=== PATIENT | male | born 1945 | race Caucasian/White ===

== ENCOUNTER 2018-07-03 08:04 | Emergency (ER) | payer MEDICARE ==
[2018-07-03 08:11] VITALS: TEMP 97.8
[2018-07-03] MEDS ORDERED: SODIUM CHLORIDE 0.9% 1,000 ML IV STA (08:18)
--- NOTE | 2018-07-03 08:22 | ED ---
Neuro HPI - General Chief Complaint: Neuro Symptoms/Deficit Stated Complaint: Slurred speech Time Seen by Provider: 07/03/18 08:12 Source: patient, RN notes reviewed Mode of arrival: ambulatory Limitations: no limitations - History of Present Illness Is the patient presenting with stroke symptoms?: Yes Initial Comments: This is a 73-year-old male who states he had the onset around 12 noon yesterday of some slurred speech and left facial droop. He had a headache blurry vision nausea vomiting fevers chills sweats loss of function to his upper or lower extremities. He does state that the previous day he had rollerbladed adrianna roximately 6 miles without any incident. He does rollerbladed quite often apparently. No prior history of stroke no other modifying factors at this time. - Related Data Home Medications: Home Medications Medication Instructions Recorded Confirmed No Known Home Medications 07/03/18 07/03/18 Allergies/Adverse Reactions: Allergies Allergy/AdvReac Type Severity Reaction Status Date / Time No Known Allergies Allergy Verified 07/03/18 08:39 Review of Systems ROS Statement: Those systems with pertinent positive or pertinent negative responses have been documented in the HPI. ROS Other: All systems not noted in ROS Statement are negative. General Exam - General Exam Comments Initial Comments: This is a well-developed well-nourished awake alert oriented 3 male Limitations: no limitations General appearance: alert, in no apparent distress Head exam: Present: atraumatic, normocephalic, normal inspection Eye exam: Present: normal appearance, PERRL, EOMI. Absent: scleral icterus, conjunctival injection, periorbital swelling ENT exam: Present: mucous membranes moist, other (Slight left-sided facial asymmetry with flattening of the way nasolabial fold very slight slurring of his speech.) Neck exam: Present: normal inspection, full ROM, other (No stridor JVD or bruits). Absent: tenderness, meningismus, lymphadenopathy Respiratory exam: Present: normal lung sounds bilaterally. Absent: respiratory distress, wheezes, rales, rhonchi, stridor Cardiovascular Exam: Present: regular rate, normal rhythm, normal heart sounds. Absent: systolic murmur, diastolic murmur, rubs, gallop, clicks GI/Abdominal exam: Present: soft, normal bowel sounds. Absent: distended, tenderness, guarding, rebound, rigid Extremities exam: Present: normal inspection, full ROM, normal capillary refill. Absent: tenderness, pedal edema, joint swelling, calf tenderness Back exam: Present: normal inspection Neurological exam: Present: alert, oriented X3, other (Slight facial asymmetry i s noted very slight slurring of his speech.) Psychiatric exam: Present: normal affect, normal mood Skin exam: Present: warm, dry, intact, normal color. Absent: rash Stroke MDM - Lab Data Result diagrams: 07/03/18 08:27 07/03/18 08:27 Lab Results 07/03/18 07/03/18 07/03/18 Range/Units 08:20 08:27 08:27 WBC 5.6 (3.8-10.6) k/uL RBC 4.94 (4.30-5.90) m/uL Hgb 15.1 (13.0-17.5) gm/dL Hct 45.3 (39.0-53.0) % MCV 91.7 (80.0-100.0) fL MCH 30.6 (25.0-35.0) pg MCHC 33.4 (31.0-37.0) g/dL RDW 13.5 (11.5-15.5) % Plt Count 172 (150-450) k/uL Neutrophils % 66 % Lymphocytes % 25 % Monocytes % 5 % Eosinophils % 2 % Basophils % 1 % Neutrophils # 3.7 (1.3-7.7) k/uL Lymphocytes # 1.4 (1.0-4.8) k/uL Monocytes # 0.3 (0-1.0) k/uL Eosinophils # 0.1 (0-0.7) k/uL Basophils # 0.0 (0-0.2) k/uL PT (9.0-12.0) sec INR (<1.2) APTT (22.0-30.0) sec Sodium 141 (137-145) mmol/L Potassium 4.0 (3.5-5.1) mmol/L Chloride 108 H (98-107) mmol/L Carbon Dioxide 28 (22-30) mmol/L Anion Gap 5 mmol/L BUN 17 (9-20) mg/dL Creatinine 0.90 (0.66-1.25) mg/dL Est GFR (CKD-EPI)AfAm >90 (>60 ml/min/1.73 sqM) Est GFR (CKD-EPI)NonAf 83 (>60 ml/min/1.73 sqM) Glucose 105 H (74-99) mg/dL POC Glucose (mg/dL) 105 H (75-99) mg/dL POC Glu Applications Support Specialist ID Angus De Jesus Calcium 9.4 (8.4-10.2) mg/dL Magnesium 1.8 (1.6-2.3) mg/dL Total Bilirubin 0.9 (0.2-1.3) mg/dL AST 22 (17-59) U/L ALT 22 (21-72) U/L Alkaline Phosphatase 64 (38-126) U/L Total Creatine Kinase (55-170) U/L CK-MB (CK-2) (0.0-2.4) ng/mL CK-MB (CK-2) Rel Index Troponin I (0.000-0.034) ng/mL Total Protein 6.9 (6.3-8.2) g/dL Albumin 4.2 (3.5-5.0) g/dL 07/03/18 07/03/18 Range/Units 08:27 08:27 WBC (3.8-10.6) k/uL RBC (4.30-5.90) m/uL Hgb (13.0-17.5) gm/dL Hct (39.0-53.0) % MCV (80.0-100.0) fL MCH (25.0-35.0) pg MCHC (31.0-37.0) g/dL RDW (11.5-15.5) % Plt Count (150-450) k/uL Neutrophils % % Lymphocytes % % Monocytes % % Eosinophils % % Basophils % % Neutrophils # (1.3-7.7) k/uL Lymphocytes # (1.0-4.8) k/uL Monocytes # (0-1.0) k/uL Eosinophils # (0-0.7) k/uL Basophils # (0-0.2) k/uL PT 10.1 (9.0-12.0) sec INR 0.9 (<1.2) APTT 24.7 (22.0-30.0) sec Sodium (137-145) mmol/L Potassium (3.5-5.1) mmol/L Chloride (98-107) mmol/L Carbon Dioxide (22-30) mmol/L Anion Gap mmol/L BUN (9-20) mg/dL Creatinine (0.66-1.25) mg/dL Est GFR (CKD-EPI)AfAm (>60 ml/min/1.73 sqM) Est GFR (CKD-EPI)NonAf (>60 ml/min/1.73 sqM) Glucose (74-99) mg/dL POC Glucose (mg/dL) (75-99) mg/dL POC Glu Applications Support Specialist ID Calcium (8.4-10.2) mg/dL Magnesium (1.6-2.3) mg/dL Total Bilirubin (0.2-1.3) mg/dL AST (17-59) U/L ALT (21-72) U/L Alkaline Phosphatase (38-126) U/L Total Creatine Kinase 42 L (55-170) U/L CK-MB (CK-2) 0.8 (0.0-2.4) ng/mL CK-MB (CK-2) Rel Index 1.9 Troponin I <0.012 (0.000-0.034) ng/mL Total Protein (6.3-8.2) g/dL Albumin (3.5-5.0) g/dL - NIH Stroke Scale 1a. Level of Consciousness: (0) alert 1b. LOC Questions: (0) answers correctly 1c. LOC Commands: (0) performs tasks correctly 2. Best Gaze: (0) normal 3. Visual: (0) no visual loss 4. Facial Palsy: (1) minor paralysis 5a. Motor Arm Left: (0) no drift 5b. Motor Arm Right: (0) no drift 6a. Motor Leg Left: (0) no drift 6b. Motor Leg Right: (0) no drift 7. Limb Ataxia: (0) absent 8. Sensory: (0) normal 9. Best Language: (1) mild/moderate aphasia 10. Dysarthria: (0) normal 11. Extinction/Inattention: (0) no abnormality - EKG Data -: EKG Interpreted by Me (Sinus rhythm a 69. Interval 178 QRS duration 104 QT since QTC 14/447 moder) EKG shows normal: sinus rhythm Past Medical History Past Medical History: No Reported History History of Any Multi-Drug Resistant Organisms: None Reported Past Psychological History: No Psychological Hx Reported Smoking Status: Never smoker Past Alcohol Use History: None Reported Past Drug Use History: None Reported Course Vital Signs 07/03/18 07/03/18 07/03/18 08:08 08:20 08:30 Temperature 97.8 F Pulse Rate 71 72 75 Respiratory 20 18 16 Rate Blood Pressure 146/92 181/91 O2 Sat by Pulse 95 96 Oximetry 07/03/18 07/03/18 08:39 08:45 Temperature Pulse Rate 75 71 Respiratory 16 16 Rate Blood Pressure 180/95 O2 Sat by Pulse 97 96 Oximetry - Reevaluation(s) Reevaluation #1: 07/03/18 09:32 I did reevaluate patient several occasions he demonstrates no further changes in his presenting complaints. He is awake alert oriented 3. Reevaluation #2: 07/03/18 09:32 I did discuss case with Dr. Vallejo the patient is not a candidate for intervention at this time he does require inpatient treatment and workup. He will be placed on aspirin and Lipitor. Patient will be transferred to [facility] I did discuss the case with Dr. Soni patient will be transferred year to ER Reevaluation #3: 07/03/18 09:34 Patient did require cardiac monitoring: Heart rate of 70 bpm no PACs or PVCs. Indicated. Due to strokelike symptoms Critical Care Time Critical Care Time: Yes Critical Care Time: 31 minutes of critical care time which was initial presentation with history physical labs x-rays also reevaluation the patient. Discussion with the patient family regarding findings discussed with the interventional neurologist. Discussed with the ER personnel at [facility]. Discussion with the transferring paramedics. Documentation of the above. Disposition Clinical Impression: Cerebrovascular accident Disposition: OTHER INSTITUTION NOT DEFINED Condition: Stable Referrals: None,Stated [Primary Care Provider] - 1-2 days - Out of Hospital Transfer - Req. Specs Out of Hospital Transfer - Requested Specifics: Other Emergency Center
[2018-07-03 08:38] LABS: Glucose,Whole Blood 105 mg/dL (75-99)
[2018-07-03 08:45] LABS: Basophils % (A) 1 %; Eosinophils # (A) 0.1 k/uL (0-0.7); Eosinophils % (A) 2 %; HCT 45.3 % (39.0-53.0); HGB 15.1 gm/dL (13.0-17.5); Lymphocytes # (A) 1.4 k/uL (1.0-4.8); Lymphocytes % (A) 25 %; MCH 30.6 pg (25.0-35.0); MCHC 33.4 g/dL (31.0-37.0); MCV 91.7 fL (80.0-100.0); Mean Platelet Volume 7.2; Monocytes # (A) 0.3 k/uL (0-1.0); Monocytes % (A) 5 %; Neutrophils # (A) 3.7 k/uL (1.3-7.7); Neutrophils % (A) 66 %; Platelet Count 172 k/uL (150-450); RBC 4.94 m/uL (4.30-5.90); RDW 13.5 % (11.5-15.5); WBC 5.6 k/uL (3.8-10.6)
[2018-07-03 08:46] VITALS: RESP 16
--- NOTE | 2018-07-03 08:52 | CT ---
EXAMINATION TYPE: CT brain wo con for TPA DATE OF EXAM: 07/03/2018 COMPARISON: None HISTORY: Lt facial droop, slurred speech CT DLP: 1021 mGycm Automated exposure control for dose reduction was used. Helical imaging through the brain. FINDINGS: Periventricular white matter shows patchy low attenuation. There is no hemorrhage or hydrocephalus. T here are cerebral vascular calcifications present. The orbits show symmetric appearance. The calvariu m is intact. Calcification in the left cerebellar hemisphere shows a nonaggressive, benign appearance . Questionable low-attenuation within the morris. There is likely age-related cortical atrophy. Paranas al sinuses are well aerated. IMPRESSION: NONSPECIFIC WHITE MATTER DEMYELINATION. LOW-ATTENUATION WITHIN THE MORRIS, FINDINGS MAY BE INDICATIVE O F UNDERLYING ISCHEMIC CHANGES OF QUESTIONABLE AGE, MRI MAY BE OF BENEFIT. Additional findings above.
[2018-07-03 08:54] LABS: ALT 22 U/L (21-72); AST 22 U/L (17-59); Albumin 4.2 g/dL (3.5-5.0); Alkaline Phosphatase 64 U/L (38-126); Anion Gap 5 mmol/L; Blood Urea Nitrogen 17 mg/dL (9-20); Calcium 9.4 mg/dL (8.4-10.2); Carbon Dioxide 28 mmol/L (22-30); Chloride 108 mmol/L (98-107); Glucose 105 mg/dL (74-99); Magnesium 1.8 mg/dL (1.6-2.3); Sodium 141 mmol/L (137-145); Total Bilirubin 0.9 mg/dL (0.2-1.3); Total Protein 6.9 g/dL (6.3-8.2)
[2018-07-03 09:02] LABS: Creatine Kinase 42 U/L (55-170)
[2018-07-03 09:03] LABS: INR 0.9 (<1.2); Partial Thromboplastin Time 24.7 sec (22.0-30.0); Prothrombin Time 10.1 sec (9.0-12.0)
[2018-07-03 09:14] LABS: Creatine Kinase MB 0.8 ng/mL (0.0-2.4); Troponin I <0.012 ng/mL (0.000-0.034)
--- NOTE | 2018-07-03 09:29 | CT ---
EXAMINATION TYPE: CT angio head neck DATE OF EXAM: 07/03/2018 HISTORY: Lt facial droop, slurred speech COMPARISON: CT brain same date CT DLP: 426.5 mGycm. Automated Exposure Control for Dose Reduction was Utilized. TECHNIQUE: CTA scan of the neck is performed with IV Contrast, patient injected with 50 mL of Isovue 370, axial images are obtained, coronal and sagittal reformatted images are reviewed. Three-D recons tructed images are created on an independent workstation and reviewed. FINDINGS: Carotid/Vascular Structures: The transverse aorta is patent. 3 super aortic branch vessels are noted. Proximal descending aorta is ectatic at 3.3 cm. Motion present at the level of the ascending aorta. There is tortuosity of the innominate, left carotid artery. Left and right subclavian arteries are pa tent. Vertebral arteries are patent. Left and right common carotid arteries are patent, internal and external carotid arteries are patent, there is no evidence stenosis of the proximal internal carotid arteries bilaterally. [place] shows no evident dissection or aneurysm. Atheromatous changes are present within the internal carotid arteries at the level of the siphon. No filling defect to suggest embolism. Other: Degenerative disc changes are present in the visualized spine. Lung apices are clear. IMPRESSION: Ectatic descending aorta. No evident aneurysm, dissection, or filling defect to suggest e mbolus. There are atheromatous changes noted incidentally.
[2018-07-03] MEDS ORDERED: ATORVASTATIN 80 MG TAB PO STA (09:33)
[2018-07-03] MEDS ORDERED: ASPIRIN 81 MG PO STA (09:33)
[2018-07-03 09:57] VITALS: BP 184/96; PULSE 65
--- NOTE | 2018-07-03 10:00 | XR ---
EXAMINATION TYPE: XR chest 2V DATE OF EXAM: 07/03/2018 COMPARISON: NONE TECHNIQUE: PA and lateral views submitted. HISTORY: Altered mental status FINDINGS: The lungs are clear and there is no pneumothorax, pleural effusion, or focal pneumonia. Arthropathy of the shoulders with diffuse osteopenia. No overt failure. Hypertrophic and degenerative change of the spine. IMPRESSION: 1. No acute process.
== END 2018-07-03 10:00 | disposition other institution (70) ==
LOC: EC 08:04
DX: I63.9 Cerebral infarction, unspecified (principal); R29.702 NIHSS score 2
CPT/HCPCS: 36415; 93005; 80053; 82550; 82553; 83735; 84484; 85025; 85610; 85730; 71046; 70496; 70450; 70498; 99291; Q9967